=== PATIENT | male | born 1985 | race Two or more races ===

== ENCOUNTER → 2024-02-13 | Outpatient (CLI) | payer OTHER | END | disposition home or self-care (01) | LOC: TOM 08:44 | DX: S00.07XA Other superficial bite of scalp, initial encounter (principal) ==

== ENCOUNTER → 2024-02-13 | Emergency (ER) | payer OTHER ==
[~2024-02-13] VITALS: Ht 175.3 cm; Wt 59.9 kg
== END | disposition left against medical advice (07) ==
LOC: ER 10:10
DX: Z53.21 Procedure and treatment not carried out due to patient leaving prior to being seen by health care provider (principal)